=== PATIENT | male | born 1975 | race Caucasian/White ===

== ENCOUNTER 2016-07-18 10:28 | Emergency (ER) | payer OTHER ==
[~2016-07-18] VITALS: Ht 185.4 cm; Wt 100.7 kg
[~2016-07-18 10:28] MED LIST: BACL-67 PO; PANT40TA2 PO; TOPA25TA10 PO; VITA500046 PO
[2016-07-18] MEDS ORDERED: CYCL10TA PO (10:37)
[2016-07-18] MEDS ORDERED: SUMAtriptan SUCCINATE 6 MG/0.5 ML VIAL SC ONE (12:00)
[2016-07-18] MEDS ORDERED: IBUP80TA PO (13:04)
[2016-07-18 13:10] VITALS: BP 129/83
== END 2016-07-18 13:13 | disposition home or self-care (01) ==
LOC: M ED 11:47
DX: G44.009 Cluster headache syndrome, unspecified, not intractable (principal); F17.200 Nicotine dependence, unspecified, uncomplicated; Z79.899 Other long term (current) drug therapy

== ENCOUNTER 2017-08-30 11:24 | Emergency (ER) | payer OTHER ==
[2017-08-30] MEDS: LIDOCAINE 2% MDV 20 ML VIAL SC (12:45)
[2017-08-30] MEDS: NORCO, ANEXSIA 5/325MG TABLET (HYDROcodone/ACETAMINOPHEN) PO (12:50)
[2017-08-30] MEDS: CEPHALEXIN 500 MG CAP PO (12:50)
[2017-08-30] MEDS: ADACEL/BOOSTRIX VACCINE (DIPHTH/PERTUSS/ACELL/TETANUS)0.5ML SYR (90715) IM (12:54)
[2017-08-30] MEDS: SILVER NITRATE APPLICATOR TOP (13:28)
== END 2017-08-30 13:54 | disposition home or self-care (01) ==
LOC: M ED 11:24
DX: S60.411A Abrasion of left index finger, initial encounter (principal); S60.022A Contusion of left index finger without damage to nail, initial encounter; W31.1XXA Contact with metalworking machines, initial encounter; Y92.89 Other specified places as the place of occurrence of the external cause; F17.210 Nicotine dependence, cigarettes, uncomplicated; Z79.899 Other long term (current) drug therapy
CPT/HCPCS: 90715

== ENCOUNTER → 2019-04-10 | Outpatient (CLI) | payer OTHER ==
[~2019-04-10] MED LIST changes: -BACL-67 PO; +BACL1TAB9 PO; +CYCL10TA PO; +IBUP80TA PO; +KEFL500C17 PO; -PANT40TA2 PO; +PANT40TA3 PO; +TOPA1TAB PO; -TOPA25TA10 PO
[2019-04-10 19:07] LABS: PLATELET COUNT, AUTOMATED 383 10^3/uL (150-450)
[2019-04-10 19:29] LABS: INR 1.04; PROTHROMBIN TIME 13.3 SECONDS (11.8-14.0)
== END ==
LOC: M LAB 18:38
PROVIDERS: ATTEND Physician Assistant
DX: Z01.812 Encounter for preprocedural laboratory examination (principal); M47.892 Other spondylosis, cervical region

== ENCOUNTER → 2019-08-05 | Outpatient (CLI) | payer OTHER ==
[~2019-08-05] MED LIST changes: +CYCL-707 PO; -CYCL10TA PO
[2019-08-05 16:48] LABS: C REACTIVE PROTEIN QUANTITATIV 2.59 MG/DL (0.00-0.30); RHEUMATOID FACTOR QUANT < 10.0 IU/ML (<15.0)
[2019-08-07 12:14] LABS: ANTINUCLEAR ANTIBODIES DIRECT Negative (Negative)
== END ==
LOC: M LAB 15:42
PROVIDERS: ATTEND Physical Medicine & Rehabilitation
DX: G56.03 Carpal tunnel syndrome, bilateral upper limbs (principal)

== ENCOUNTER → 2020-01-08 | Outpatient (REF) | payer OTHER ==
[~2020-01-08] MED LIST changes: +PANT40TA29 PO; -PANT40TA3 PO
[2020-01-08 13:50] LABS: C REACTIVE PROTEIN QUANTITATIV < 0.30 MG/DL (0.00-0.30); RHEUMATOID FACTOR QUANT < 10.0 IU/ML (<15.0); URIC ACID 4.2 MG/DL (3.5-7.2)
== END ==
LOC: M SFHCRHEU 11:02
PROVIDERS: ATTEND Internal Medicine
DX: M25.50 Pain in unspecified joint (principal)

== ENCOUNTER → 2020-06-28 | Outpatient (REF) | payer OTHER ==
[2020-06-28 12:22] LABS: BASO # 0.1 10^3/uL (0.0-0.2); BASO % 0.9 % (0.0-1.0); EOS # 0.6 10^3/uL (0.0-0.5); EOS % 7.4 % (0.0-3.0); HEMATOCRIT 45.2 % (42.0-52.0); HEMOGLOBIN 14.8 g/dl (13.5-17.5); LYMPH # 2.4 10^3/uL (1.5-5.0); LYMPH % 29.3 % (24.0-44.0); MEAN CORPUSCULAR HEMOGLOBIN 30.7 pg (27.0-33.0); MEAN CORPUSCULAR HGB CONC 32.7 g/dl (32.0-36.5); MEAN CORPUSCULAR VOLUME 93.8 fl (80.0-96.0); MONO # 0.9 10^3/uL (0.0-0.8); MONO % 10.5 % (2.0-8.0); NEUTROPHILS # 4.2 10^3/uL (1.5-8.5); NEUTROPHILS % 51.4 % (36.0-66.0); PLATELET COUNT, AUTOMATED 415 10^3/uL (150-450); RED BLOOD COUNT 4.82 10^6/uL (4.30-6.10); WHITE BLOOD COUNT 8.2 10^3/uL (4.0-10.0)
[2020-06-28 12:41] LABS: ALT/SGPT 37 U/L (12-78); BILIRUBIN,TOTAL 0.3 MG/DL (0.2-1.0); BLOOD UREA NITROGEN 15 MG/DL (7-18); CALCIUM LEVEL 9.4 MG/DL (8.5-10.1); CARBON DIOXIDE LEVEL 28 MEQ/L (21-32); CHLORIDE LEVEL 107 MEQ/L (98-107); CREATININE FOR GFR 0.75 MG/DL (0.70-1.30); GLOMERULAR FILTRATION RATE > 60.0 (>60); GLUCOSE, FASTING 87 MG/DL (70-100); POTASSIUM SERUM 4.7 MEQ/L (3.5-5.1); SODIUM LEVEL 139 MEQ/L (136-145)
[2020-06-28 12:58] LABS: ERYTHROCYTE SEDIMENTATION RATE 5 mm/hr (0-15)
[2020-06-29 19:07] LABS: ANA (HEP2) Negative (.)
== END ==
LOC: M SFHCRHEU 10:34
PROVIDERS: ATTEND Internal Medicine Rheumatology
DX: M19.90 Unspecified osteoarthritis, unspecified site (principal)

== ENCOUNTER → 2021-06-24 | Outpatient (CLI) | payer OTHER ==
[2021-06-24 11:41] LABS: BASO # 0.1 10^3/uL (0.0-0.2); BASO % 1.1 % (0.0-1.0); EOS # 0.6 10^3/uL (0.0-0.5); EOS % 6.9 % (0.0-3.0); HEMATOCRIT 44.8 % (42.0-52.0); HEMOGLOBIN 14.9 g/dl (13.5-17.5); LYMPH # 2.3 10^3/uL (1.5-5.0); LYMPH % 28.1 % (24.0-44.0); MEAN CORPUSCULAR HEMOGLOBIN 30.7 pg (27.0-33.0); MEAN CORPUSCULAR HGB CONC 33.3 g/dl (32.0-36.5); MEAN CORPUSCULAR VOLUME 92.4 fl (80.0-96.0); MONO # 0.8 10^3/uL (0.0-0.8); MONO % 9.7 % (2.0-8.0); NEUTROPHILS # 4.4 10^3/uL (1.5-8.5); NEUTROPHILS % 54.1 % (36.0-66.0); PLATELET COUNT, AUTOMATED 416 10^3/uL (150-450); RED BLOOD COUNT 4.85 10^6/uL (4.30-6.10); WHITE BLOOD COUNT 8.1 10^3/uL (4.0-10.0)
[2021-06-24 12:05] LABS: ERYTHROCYTE SEDIMENTATION RATE 4 mm/hr (0-15)
[2021-06-24 12:06] LABS: ALT/SGPT 39 U/L (12-78); BILIRUBIN,TOTAL 0.7 MG/DL (0.2-1.0); BLOOD UREA NITROGEN 19 MG/DL (7-18); CALCIUM LEVEL 9.3 MG/DL (8.5-10.1); CARBON DIOXIDE LEVEL 29 MEQ/L (21-32); CHLORIDE LEVEL 107 MEQ/L (98-107); CREATININE FOR GFR 1.05 MG/DL (0.70-1.30); GLOMERULAR FILTRATION RATE > 60.0 (>60); GLUCOSE, FASTING 84 MG/DL (70-100); POTASSIUM SERUM 4.4 MEQ/L (3.5-5.1); SODIUM LEVEL 138 MEQ/L (136-145); TOTAL PROTEIN 7.1 GM/DL (6.4-8.2)
== END ==
LOC: M LAB 10:38
PROVIDERS: ATTEND Internal Medicine Rheumatology
DX: M19.90 Unspecified osteoarthritis, unspecified site (principal)